=== PATIENT | female | born 2000 | race Caucasian/White ===

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

== ENCOUNTER 2022-08-09 18:53 | Observation (INO) ==
[2022-08-09] MEDS ORDERED: ACETAMINOPHEN 500 MG TAB PO STA ×2 (19:13→21:03)
[2022-08-09] MEDS ORDERED: SODIUM CHLORIDE 0.9% 1000ML 1,000 ML IV ONE ×2 (20:25→20:40)
--- NOTE | 2022-08-09 20:50 | Ultrasound Report ---
US pelvic complete HISTORY: 22 years-old Female heavy bleeding acute vaginal bleeding COMPARISON: None TECHNIQUE: Multiple real-time sonogram images of the deep pelvic structures were obtained transabdomi kimberly assessing grayscale appearance, color and spectral flow FINDINGS: Patient was unable to tolerate the transvaginal component of the study. Anteflexed uterus measures 7.4 x 3.8 x 5.5 cm and is unremarkable. Endometrium measures 2 mm in thick ness. Right ovary is obscured by bowel gas. The left ovary measures 3.2 x 2.0 x 2.2 cm with arterial inflow and venous outflow. No significant free pelvic fluid. IMPRESSION: Unremarkable pelvic ultrasound. ACT 112: Negative or not required by law. The above report was generated using voice recognition software. It may contain grammatical, syntax o r spelling errors. Electronically signed by: James Blood M.D. 08/09/2022 8:49 PM
[2022-08-09 21:02] LABS: Basophils # (auto) 0.04 K/uL (0-0.2); Basophils % (auto) 0.2 %; Eosinophils # (auto) 0.01 K/uL (0-0.50); Eosinophils % (auto) 0.1 %; Hematocrit (blood only) 34.6 % (37.0-47.0); Hemoglobin 11.6 g/dl (12.0-16.0); Immature Granulocytes # (auto) 0.07 K/uL (0.01-0.20); Immature Granulocytes % (auto) 0.4 %; Lymphocytes # (auto) 1.74 K/uL (1.2-3.4); Lymphocytes % (auto) 10.7 %; Mean Corpuscular Hemoglobin 26.7 pg (25.0-34.0); Mean Corpuscular Hgb Conc 33.5 g/dL (32.0-36.0); Mean Corpuscular Volume 79.5 fL (80.0-100.0); Mean Platelet Volume 11.2 fL (9.4-12.4); Monocytes # (auto) 1.11 K/uL (0.11-0.59); Monocytes % (auto) 6.8 %; Neutrophils # (auto) 13.26 K/uL (1.40-6.50); Neutrophils % (auto) 81.8 %; Platelet Count 342 K/uL (130-400); RDW Coefficient of Variation 14.1 % (11.5-14.5); RDW Standard Deviation 41.1 fL (36.4-46.3); Red Blood Count 4.35 M/uL (4.20-5.40); White Blood Count 16.23 K/ul (4.8-10.8)
--- NOTE | 2022-08-09 21:03 | Emergency Department Note ---
Impression & Plan Abscess, perirectal ADMIT ED Provider Note HPI: The patient is a 22-year-old female who presents the emergency department the chief complaint of right-sided rectal pain that has been constant and worsening for the past 2 days. Patient states the pain was severe today to the point where she was having pain with ambulation. Patient was evaluated in the outpatient setting, referred to the ED for further evaluation. On arrival here to the ED the patient is mildly tachycardic and febrile at 38.4, she denies any vomiting, denies any diarrhea. Patient states she has been having regular bowel movements. Patient states that she has severe pain in the area of the right side of her rectum and gluteus muscle area with ambulation and movement. ROS: - Per HPI *Outpatient medications and allergy history reviewed. *Pertinent external medical records reviewed. PE: General: Alert HEENT: Normocephalic, trachea midline Eyes: Extraocular eye movement is intact, no scleral erythema Pulmonary: Clear to auscultation bilaterally, no wheezing Cardio: Regular rate and rhythm GI: Abdomen is soft, nontender, there is no evidence of any abnormality on rectal examination (performed with female RN at the bedside), patient does have a significant amount of tenderness with any palpation of the right glute : No suprapubic tenderness MSK: No evidence of trauma or malformation of the extremities, no edema Skin: No evidence of rash Neuro: Alert, no focal deficits Psychiatric: Cooperative hall monitor: - An order was placed for continuous cardiac monitoring - Patient was noted to be in sinus rhythm with a rate of 90 CT ABDOMEN & PELVIS With Contrast: 3.6 x 3.1 cm right-sided perirectal abscess. Trace physiologic fluid within the dependent pelvis. No free air or intestinal obstruction. Normal-appearing appendix within the right lower quadrant. Radiologist: Vinicio Andrews MD Interventions provided in ED: -IV fluid bolus, IV Zosyn, Tylenol Medical Decision Making: Patient presented to the emergency department with some right-sided rectal pain, states she has had vaginal bleeding but this is consistent with her normal cycle. Ultrasound imaging was ordered from triage that shows no evidence of any abnormality on pelvic ultrasound. On my assessment patient does have significant tenderness in the area of the right [place], rectal examination does not show any evidence of any obvious fluctuant mass or abnormality. She states the pain feels as if it is in the right side of her rectum and she does have pain with palpation of the right glued therefore CT imaging was obtained and does show evidence of a perirectal abscess measuring approximately 3.6 cm in maximum diameter to the right side of the rectum. Patient's lab work shows a leukocytosis, she did present with fever, blood cultures were ordered, patient was started on IV Zosyn. I did discuss the case with the on-call surgical PA, Goyo Escamilla, patient was evaluated and determined appropriate for admission for further management to the surgical service under the service of Dr. Dodd of general surgery. I discussed all the above findings with the patient and her mother, they are in agreement for admission to the surgery service for definitive care. Patient is otherwise stable on my reassessment, states she is feeling somewhat improved following IV fluids and Tylenol. Patient was admitted to general surgery in stable condition for further management Consultants: General surgery service, Goyo Artis PA-C Disposition discussion held by myself with: Patient and mother at bedside Diagnosis: 1. Perirectal abscess, right side 2. Fever 3. Leukocytosis 4. Rectal pain, Disposition: Admission Gerry Simpson DO Emergency Medicine Past Med/Surg History Medical History Anemia Extradural bleed following injury, brief (less than 1 hour) LOC Hair loss Right knee pain Skull fracture, with loss of consciousness Surgical History H/O oral surgery Family History Grandfather (Paternal) Lung cancer Aunt Lung cancer Grandfather (Maternal) Stroke Family/Other Stomach cancer cousin Denies family history of Ovarian cancer Prostate cancer Diabetes Dementia Heart disease Myocardial infarction Breast cancer Colorectal cancer Social History Smoking Status: Never smoker Second Hand Exposure: No; Hx Alcohol Use: No Hx Substance Use: No Preferred Language: Malaysian Communication Ability: Effective Visual Impairment: No Limitations Hearing Ability: Normal Nursing Unit Clerk Required: No Beliefs That Will Affect Care: None marital status: Single Current Living Situation: Family current occupational status: employed Feels Safe at Home: Yes Childhood Exposure to Second-Hand Smoke: Yes (grandfather for a short while) caffeine: Yes Dental Care, Regularly: Yes Physical Activity Frequency: 3-4 Times per Week Seatbelt Use: always Sunscreen Use: Yes Allergies Allergies Allergy/AdvReac Type Severity Reaction Status Date / Time No Known Allergies Allergy Verified 08/09/22 20:48 Home Meds Home Medications Medication Instructions Recorded Confirmed albuterol sulfate 90 mcg/actuation 1 inh inhalation Q6H PRN Shortness 08/09/22 08/09/22 aerosol inhaler Of Breath Or Wheezing Previous Rx's Medication Instructions Recorded clindamycin phosphate 1 % lotion 1 applic topical DAILY #60 mL 09/03/21 selenium sulfide 2.25 % shampoo 1 applic topical .COMPLEX #180 mL 09/03/21 Results & Data (ED) Vital Signs Vital Signs - 24 hr 08/09/22 19:04 08/09/22 19:52 08/09/22 21:03 Temperature 38.9 C H 38.4 C H 37.5 C Temperature Source Temporal Artery Scan Oral Oral Pulse Rate 127 H Pulse Rate [Right Finger] 113 H Pulse Rhythm [Right Finger] Respiratory Rate 20 18 18 Respiratory Effort / Characteristics Non-Labored Spontaneous Non-Labored Spontaneous Non-Labored Spontaneous Respiratory Depth Normal Normal Normal Respiratory Pattern Regular Blood Pressure 106/73 Blood Pressure [Right Arm] 102/72 95/56 L Blood Pressure Mean 84 Blood Pressure Mean [Right Arm] 82 69 Blood Pressure Position [Right Arm] Pulse Oximetry 94 97 96 Oxygen Delivery Method Room Air Room Air Room Air Sepsis Recent Fever Within 48 Hours No Sepsis New/Unexplained Change in Mental Status N/A Sepsis Action Taken by Nursing No Action Required 08/09/22 22:31 Temperature 36.8 C Temperature Source Oral Pulse Rate Pulse Rate [Right Finger] 97 H Pulse Rhythm [Right Finger] Regular Respiratory Rate 18 Respiratory Effort / Characteristics Non-Labored Spontaneous Respiratory Depth Normal Respiratory Pattern Regular Blood Pressure Blood Pressure [Right Arm] 92/57 L Blood Pressure Mean Blood Pressure Mean [Right Arm] 68 Blood Pressure Position [Right Arm] Lying Pulse Oximetry 97 Oxygen Delivery Method Room Air Sepsis Recent Fever Within 48 Hours Sepsis New/Unexplained Change in Mental Status Sepsis Action Taken by Nursing Laboratory Data 08/09/22 19:30 08/09/22 19:30 Lab Results 08/09/22 08/09/2223 Range/Units 19:30 19:30 19:30 WBC 16.23 H (4.8-10.8) K/ul RBC 4.35 (4.20-5.40) M/uL Hgb 11.6 L (12.0-16.0) g/dl Hct 34.6 L (37.0-47.0) % MCV 79.5 L (80.0-100.0) fL MCH 26.7 (25.0-34.0) pg MCHC 33.5 (32.0-36.0) g/dL RDW Std Deviation 41.1 (36.4-46.3) fL RDW Coeff of Jason 14.1 (11.5-14.5) % Plt Count 342 (130-400) K/uL MPV 11.2 (9.4-12.4) fL Immature Gran % (Auto) 0.4 % Neut % (Auto) 81.8 % Lymph % (Auto) 10.7 % [place] % (Auto) 6.8 % Eos % (Auto) 0.1 % Baso % (Auto) 0.2 % Neut # (Auto) 13.26 H (1.40-6.50) K/uL Lymph # (Auto) 1.74 (1.2-3.4) K/uL [place] # (Auto) 1.11 H (0.11-0.59) K/uL Eos # (Auto) 0.01 (0-0.50) K/uL Baso # (Auto) 0.04 (0-0.2) K/uL Immature Gran # (Auto) 0.07 (0.01-0.20) K/uL Sodium 135 L (136-145) mmol/L Potassium 3.2 L (3.5-5.1) mmol/L Chloride 102 (98-107) mmol/L Carbon Dioxide 22 (21-32) mmol/L Anion Gap 11 (3-11) BUN 10 (6-23) mg/dl Creatinine 0.67 (0.6-1.2) mg/dl Est Cr Clr Drug Dosing 95.9 ml/min Est GFR ( Amer) 142.6 ml/min Est GFR (Non-Af Amer) 123.0 ml/min BUN/Creatinine Ratio 14.9 (10-20) Glucose 124 H (70-99(Fasting)) mg/dl Calcium 9.7 (8.5-10.1) mg/dl Total Bilirubin 0.5 (0.2-1.0) mg/dl AST 14 (13-39) U/L ALT 9 (7-52) U/L Alkaline Phosphatase 65 (34-104) U/L Total Protein 8.4 H (6.0-8.3) gm/dl Albumin 4.6 (3.4-5.0) gm/dl Globulin 3.8 (2.5-4.0) gm/dl Albumin/Globulin Ratio 1.2 (0.9-2) HCG, Qual Negative (Negative) Urine Color Urine Appearance (Clear) Urine pH (4.5-7.5) Ur Specific [place] (1.000-1.030) Urine Protein (Negative) Urine Glucose (UA) (Negative) Urine Ketones (Negative) Urine Blood (Negative) Urine Nitrite (Negative) Urine Bilirubin (Negative) Urine Urobilinogen (Negative) Ur Leukocyte Esterase (Negative) Urine WBC (Auto) (0-5) /hpf Urine RBC (Auto) (0-4) /hpf U Hyaline Cast (Auto) (0-5) /lpf U Epithel Cells (Auto) (0-5) /lpf Urine Bacteria (Auto) (Negative) POC Ur Test (NEG) Adenovirus (PCR) (NotDetected) B. pertussis DNA (PCR) (NotDetected) B.parapertussis DNA PCR (NotDetected) C. pneumoniae DNA (PCR) (NotDetected) Coronavirus OC43 (PCR) (NotDetected) Coronavirus HKU1 (PCR) (NotDetected) Coronavirus 229E (PCR) (NotDetected) SARS-CoV-2 (PCR) (NotDetected) Coronavirus NL63 (PCR) (NotDetected) Human Metapneumovir PCR (NotDetected) Influenza Type A (PCR) (NotDetected) Influenza Type B (PCR) (NotDetected) M. pneumoniae (PCR) (NotDetected) Parainfluenza 1 (PCR) (NotDetected) Parainfluenza 2 (PCR) (NotDetected) Parainfluenza 3 (PCR) (NotDetected) Parainfluenza 4 (PCR) (NotDetected) RSV (PCR) (NotDetected) Entero/Rhino (PCR) (NotDetected) 08/09/22 08/09/22 08/09/22 Range/Units 21:02 21:41 21:41 WBC (4.8-10.8) K/ul RBC (4.20-5.40) M/uL Hgb (12.0-16.0) g/dl Hct (37.0-47.0) % MCV (80.0-100.0) fL MCH (25.0-34.0) pg MCHC (32.0-36.0) g/dL RDW Std Deviation (36.4-46.3) fL RDW Coeff of Jason (11.5-14.5) % Plt Count (130-400) K/uL MPV (9.4-12.4) fL Immature Gran % (Auto) % Neut % (Auto) % Lymph % (Auto) % [place] % (Auto) % Eos % (Auto) % Baso % (Auto) % Neut # (Auto) (1.40-6.50) K/uL Lymph # (Auto) (1.2-3.4) K/uL [place] # (Auto) (0.11-0.59) K/uL Eos # (Auto) (0-0.50) K/uL Baso # (Auto) (0-0.2) K/uL Immature Gran # (Auto) (0.01-0.20) K/uL Sodium (136-145) mmol/L Potassium (3.5-5.1) mmol/L Chloride (98-107) mmol/L Carbon Dioxide (21-32) mmol/L Anion Gap (3-11) BUN (6-23) mg/dl Creatinine (0.6-1.2) mg/dl Est Cr Clr Drug Dosing ml/min Est GFR ( Amer) ml/min Est GFR (Non-Af Amer) ml/min BUN/Creatinine Ratio (10-20) Glucose (70-99(Fasting)) mg/dl Calcium (8.5-10.1) mg/dl Total Bilirubin (0.2-1.0) mg/dl AST (13-39) U/L ALT (7-52) U/L Alkaline Phosphatase (34-104) U/L Total Protein (6.0-8.3) gm/dl Albumin (3.4-5.0) gm/dl Globulin (2.5-4.0) gm/dl Albumin/Globulin Ratio (0.9-2) HCG, Qual (Negative) Urine Color Yellow Urine Appearance Clear (Clear) Urine pH 6.0 (4.5-7.5) Ur Specific [place] 1.005 (1.000-1.030) Urine Protein Negative (Negative) Urine Glucose (UA) Negative (Negative) Urine Ketones 1+ H (Negative) Urine Blood Trace H (Negative) Urine Nitrite Negative (Negative) Urine Bilirubin Negative (Negative) Urine Urobilinogen Negative (Negative) Ur Leukocyte Esterase Negative (Negative) Urine WBC (Auto) 0 (0-5) /hpf Urine RBC (Auto) 0-4 (0-4) /hpf U Hyaline Cast (Auto) 0 (0-5) /lpf U Epithel Cells (Auto) 5-10 H (0-5) /lpf Urine Bacteria (Auto) Negative (Negative) POC Ur Test NEG (NEG) Adenovirus (PCR) Not Detected (NotDetected) B. pertussis DNA (PCR) Not Detected (NotDetected) B.parapertussis DNA PCR Not Detected (NotDetected) C. pneumoniae DNA (PCR) Not Detected (NotDetected) Coronavirus OC43 (PCR) Not Detected (NotDetected) Coronavirus HKU1 (PCR) Not Detected (NotDetected) Coronavirus 229E (PCR) Not Detected (NotDetected) SARS-CoV-2 (PCR) Not Detected (NotDetected) Coronavirus NL63 (PCR) Not Detected (NotDetected) Human Metapneumovir PCR Not Detected (NotDetected) Influenza Type A (PCR) Not Detected (NotDetected) Influenza Type B (PCR) Not Detected (NotDetected) M. pneumoniae (PCR) Not Detected (NotDetected) Parainfluenza 1 (PCR) Not Detected (NotDetected) Parainfluenza 2 (PCR) Not Detected (NotDetected) Parainfluenza 3 (PCR) Not Detected (NotDetected) Parainfluenza 4 (PCR) Not Detected (NotDetected) RSV (PCR) Not Detected (NotDetected) Entero/Rhino (PCR) Not Detected (NotDetected) Administered Medications Discontinued Medications Acetaminophen (Acetaminophen 500 Mg Tab) 1,000 mg PO NOW STA Stop: 08/09/22 19:14 Last Admin: 08/09/22 19:29 Dose: 1,000 mg Documented By: [facility] Acetaminophen (Acetaminophen 500 Mg Tab) 1,000 mg PO NOW STA Stop: 08/09/22 21:04 Last Admin: 08/09/22 22:29 Dose: 1,000 mg Documented By: [facility] Sodium Chloride (Nss 1000ml) 1,000 mls @ 999 mls/hr IV .Q1H1M ONE Stop: 08/09/22 21:25 Last Infusion: 08/09/22 21:47 Dose: 0 mls/hr Documented By: Admin: 08/09/22 20:45 Dose: 999 mls/hr Documented By: [facility] Sodium Chloride (Nss 1000ml) 1,000 mls @ 999 mls/hr IV .Q1H1M ONE Stop: 08/09/22 21:40 Last Admin: 08/09/22 21:24 Dose: Not Given Documented By: [facility] Piperacillin Sod/Tazobactam Sod (Zosyn) 4.5 gm in 120 mls @ 240 mls/hr IV NOW ONE Stop: 08/09/22 22:58 Last Admin: 08/09/22 22:43 Dose: 240 mls/hr Documented By: [facility] Ioversol (Optiray 350 100ml) 87 ml IV ONCE ONE Stop: 08/09/22 22:04 Last Admin: 08/09/22 22:06 Dose: 87 ml Documented By: FIDELINA Imaging Data Radiologist's Impression: Pelvis Ultrasound 08/09/22 19:12 US pelvic complete HISTORY: 22 years-old Female heavy bleeding acute vaginal bleeding COMPARISON: None TECHNIQUE: Multiple real-time sonogram images of the deep pelvic structures were obtained transabdominally assessing grayscale appearance, color and spectral flow FINDINGS: Patient was unable to tolerate the transvaginal component of the study. Anteflexed uterus measures 7.4 x 3.8 x 5.5 cm and is unremarkable. Endometrium measures 2 mm in thickness. Right ovary is obscured by bowel gas. The left ovary measures 3.2 x 2.0 x 2.2 cm with arterial inflow and venous outflow. No significant free pelvic fluid. IMPRESSION: Unremarkable pelvic ultrasound. ACT 112: Negative or not required by law. The above report was generated using voice recognition software. It may contain grammatical, syntax or spelling errors. Electronically signed by: James Blood M.D. 08/09/2022 8:49 PM Discharge Plan Visit Data Chief Complaint: Vaginal Bleeding Stated Complaint: CONCERNING PERIOD SYMPTOMS, POSSIBLE INFECTION ED Provider: Gerry Simpson Discharge Problem: Abscess, perirectal Patient Disposition: Admitted As Inpatient Forms Stand Alone Forms: [facility] Prescriptions Prescriptions: No Action selenium sulfide 2.25 % shampoo 1 applic topical .COMPLEX Qty: 180 1RF Rx Instructions: 1 applic topical Wash scalp 2-3 times weekly. Let sit 3-5 minutes prior to rinsing off.; clindamycin phosphate 1 % lotion 1 applic topical DAILY Qty: 60 2RF Rx Instructions: Apply to face once daily in the morning as directed. albuterol sulfate 90 mcg/actuation HFA aerosol inhaler 1 inh inhalation Q6H PRN (Reason: Shortness Of Breath Or Wheezing) Rx Instructions: 1 inhalation every 6 hours needed Referrals Referrals: PCP,NO [Primary Care Provider] -
[2022-08-09 21:16] LABS: Albumin Globulin Ratio 1.2 (0.9-2); Albumin Level 4.6 gm/dl (3.4-5.0); BUN Creatinine Ratio 14.9 (10-20); Bilirubin,Total 0.5 mg/dl (0.2-1.0); Calcium 9.7 mg/dl (8.5-10.1); Creatinine Clr Calc Pharmacy 95.9 ml/min; Est GFR (African American) 142.6 ml/min; Globulin 3.8 gm/dl (2.5-4.0); Potassium 3.2 mmol/L (3.5-5.1); Total Protein 8.4 gm/dl (6.0-8.3)
[2022-08-09 21:48] LABS: Pregnancy Test, Serum Negative (Negative)
[2022-08-09] MEDS ORDERED: OPTIRAY 350 100ml IV ONE (22:03)
[2022-08-09 22:04] LABS: Adenovirus PCR Not Detected (NotDetected); Bordetella parapertussis PCR Not Detected (NotDetected); Bordetella pertussis PCR Not Detected (NotDetected); Chlamydia pneumoniae PCR Not Detected (NotDetected); Coronavirus 229E PCR Not Detected (NotDetected); Coronavirus CoV-2 (COVID19)PCR Not Detected (NotDetected); Coronavirus HKU1 PCR Not Detected (NotDetected); Coronavirus NL63 PCR Not Detected (NotDetected); Coronavirus OC43PCR Not Detected (NotDetected); Human Metapneumovirus PCR Not Detected (NotDetected); Influenza A PCR Not Detected (NotDetected); Influenza B PCR Not Detected (NotDetected); Mycoplasma pneumoniae PCR Not Detected (NotDetected); Parainfluenza Virus 1 PCR Not Detected (NotDetected); Parainfluenza Virus 2 PCR Not Detected (NotDetected); Parainfluenza Virus 3 PCR Not Detected (NotDetected); Parainfluenza Virus 4 PCR Not Detected (NotDetected); Respiratory Syncytial VirusPCR Not Detected (NotDetected); Rhinovirus/Enterovirus PCR Not Detected (NotDetected)
[2022-08-09 22:09] LABS: Appearance Urine Clear (Clear); Bacteria Urine Automated Negative (Negative); Bilirubin Urine Negative (Negative); Blood Urine Trace (Negative); Cast Urine Automated 0 /lpf (0-5); Color Urine Yellow; Glucose Urine UA Negative (Negative); Ketones Urine 1+ (Negative); Leukocyte Esterase Urine Negative (Negative); Nitrite Urine Negative (Negative); Protein Urine Negative (Negative); RBC Urine Automated 0-4 /hpf (0-4); Specific Gravity Urine 1.005 (1.000-1.030); Urobilinogen Urine Negative (Negative); WBC Urine Automated 0 /hpf (0-5)
[2022-08-09] MEDS ORDERED: PIPERACILLIN/TAZOBACTAM 4.5 GM/120 ML BAG IV ONE (22:29)
[2022-08-09] MEDS ORDERED: ACETAMINOPHEN 1,000 MG/100 ML VIAL IV PRN (23:15)
[2022-08-09] MEDS ORDERED: ONDANSETRON INJ 2 MG/ML 2 ML VIAL IV PRN (23:15)
--- NOTE | 2022-08-09 23:15 | History & Physical Report ---
Date of Service August 09, 2022 Assessment & Plan (1) Perirectal abscess: Plan: Due to the patient's labs, imaging, and clinical presentation should be admitted the hospital and we will proceed as follows: We will implement n.p.o. status at midnight tonight We will hydrate her with IV fluids supplementing her potassium We will provide analgesics We will provide antiemetics We will follow serial labs We will continue antibiotics. The patient has received Zosyn thus far in the emergency department. The patient has had blood cultures drawn in the emergency department and results will be followed with antibiotics adjusted accordingly We have tentatively placed patients on the surgical schedule tomorrow with Dr. Dodd for exam under anesthesia and drainage of perirectal abscess. I have discussed the procedure with the patient outlining the risks, benefits, alternatives and expected postoperative course. She is in agreement and wished to proceed Additional recommendations be forthcoming based on operative findings and her clinical course and postoperative recovery We will use SCDs for DVT prevention, no chemical means due to planned surgery She will be a level 1 full code History of Present Illness Chief Complaint: Rectal/buttock pain Primary Care Provider: NO PCP This is a 22-year-old female who presented to the emergency department secondary to rectal pain. Patient notes that she has been having a throbbing pain of her right buttocks for approximately 3 to 4 days. She notes that over this timeframe the pain has gotten increasingly worse. She notes that it is now worse when she walks and sits. She notes it is slightly better when she lies still but does not identify any other palliative factors. She notes that the pain does not radiate. She said earlier today she did have some nausea and vomiting but denies any abdominal pain. She also notes that she has had a fever as high as 101. She did see her primary care team today who saw her in the office and ultimately recommended patient seek further medical attention in the emergency department. Patient notes that she has never had this problem before but she has had hemorrhoids in the past and this is what she initially thought her pain was from. She denies any history of diabetes. Her most recent oral in take was approximately 20 minutes prior to my arrival in the room. Since arrival to the hospital the patient has had labs and imaging which I independently reviewed. A CT scan of the abdomen pelvis was performed that showed a 3.6 x 3.1 cm right-sided perirectal abscess. Labs include a CBC were white blood cell count was 16.2. Hemoglobin and hematocrit were 11.6 and 34.6. Platelet count was noted to be normal. Chemistry profile showed sodium was 135 with a potassium of 3.2. BUN and creatinine were both noted to be normal. Urinalysis was performed and was not indicative of infection. The patient had serologies checked for various viruses including RSV, influenza a and B, COVID- 19 all of which were negative. Since arrival to the emergency department the patient has received antibiotics in the form of Zosyn. She is also received 2 L of normal saline solution and analgesics in the form of Tylenol. At the time of my exam she was resting comfortably in bed and she was in no distress. Allergies Allergy/AdvReac Type Severity Reaction Status Date / Time No Known Allergies Allergy Verified 08/09/22 20:48 Home Medications Medication Instructions Recorded Confirmed Type clindamycin phosphate 1 % lotion 1 applic topical DAILY #60 mL 09/03/21 08/09/22 Rx selenium sulfide 2.25 % shampoo 1 applic topical .COMPLEX #180 mL 09/03/21 08/09/22 Rx albuterol sulfate 90 mcg/actuation 1 inh inhalation Q6H PRN Shortness 08/09/22 08/09/22 History aerosol inhaler Of Breath Or Wheezing Past Med/Surg History Medical History Anemia Extradural bleed following injury, brief (less than 1 hour) LOC Hair loss Right knee pain Skull fracture, with loss of consciousness Surgical History H/O oral surgery Family History Grandfather (Paternal) Lung cancer Aunt Lung cancer Grandfather (Maternal) Stroke Family/Other Stomach cancer cousin Denies family history of Ovarian cancer Prostate cancer Diabetes Dementia Heart disease Myocardial infarction Breast cancer Colorectal cancer Social History Smoking Status: Never smoker Second Hand Exposure: No; Hx Alcohol Use: No Hx Substance Use: No Preferred Language: Setswana Communication Ability: Effective Visual Impairment: No Limitations Hearing Ability: Normal Wire Mesh Knitter Required: No Beliefs That Will Affect Care: None marital status: Single Current Living Situation: Family current occupational status: employed Feels Safe at Home: Yes Childhood Exposure to Second-Hand Smoke: Yes (grandfather for a short while) caffeine: Yes Dental Care, Regularly: Yes Physical Activity Frequency: 3-4 Times per Week Seatbelt Use: always Sunscreen Use: Yes Review of Systems Constitutional: + fever; no chills Eyes: + corrective lenses Ear, Nose, Mouth, Throat: no ear pain Respiratory: no cough and no dyspnea Cardiovascular: no chest pain Gastrointestinal: as per Subjective / HPI; no abdominal pain Genitourinary: no dysuria Musculoskeletal: no back pain Integumentary: no rash Neurologic: no localized weakness Physical Exam Physical Exam: With a female nurse trolley collector present the patient's buttocks/rectum were examined. There were no open areas or cuts or excoriations. There were no areas of drainage. I did not appreciate any areas of erythema. There were no gross areas of fluctuance or induration. The patient's right buttocks just lateral to the anus was extremely tender to palpation however. Due to patient discomfort digital rectal exam was not performed. Constitutional: WD/WN, vitals as above + thin Eyes: no conjunctival abnormality Wears glasses ENMT: Ears: no hearing impairment Neck: trachea midline Respiratory: normal respiratory effort; no respiratory distress and no labored breathing Cardiovascular: Rate/Rhythm: regular rate and regular rhythm Gastrointestinal (Abdomen): Abdomen is soft and nonrigid. It is nondistended and nontender to palpation Musculoskeletal: No calf tenderness Skin: no rashes Neurologic: moves all extremities Psychiatric: A+Ox3, euthymic affect Results & Data Results & Data ([facility]) Vital Signs (Past 12 Hours) Vital Signs Temp Pulse Pulse Resp BP BP Pulse Ox 08/09/22 22:31 36.8 C 97 H 18 92/57 L 97 08/09/22 21:03 37.5 C 18 95/56 L 96 08/09/22 19:52 38.4 C H 113 H 18 102/72 97 08/09/22 19:04 38.9 C H 127 H 20 106/73 94 O2 Del Method 08/09/22 22:31 Room Air 08/09/22 21:03 Room Air 08/09/22 19:52 Room Air 08/09/22 19:04 Room Air Supervising Physician Co-Signing Physician Notes Dr Dodd- discussed case with Reilly Escamilla- reviewed pt information and studies admit, IV atbx, analgesics- plan for OR in am- incision/drainage Rt perirectal abscess PG Care Time/CCT Total # of Minutes Spent Total Time Spent with Patient: Total time spent is greater than 50% in coordination of care (as documented) at patient's floor/unit and/or counseling patient: Coding Level of Care Code 13133 INT INP/OBS CARE 3/75MIN Diagnoses Perirectal abscess K61.1
[2022-08-09] MEDS ORDERED: ACETAMINOPHEN 10MG/ML Custom 700 MG in EMPTY BAG 0 ML IV PRN (23:20)
[2022-08-10] MEDS ORDERED: ALBUTEROL HFA 8 GM INHALER INH PRN (00:34)
[2022-08-10] MEDS: POTASSIUM CHLORIDE 10 MEQ in LACTATED RINGER'S 1,000 ML IV SCH ×3 (01:01→21:20)
[2022-08-10] MEDS: PIPERACILLIN/TAZOBACTAM 3.375 GM in DEXTROSE 5% 100 ML IV SCH ×3 (03:54→21:20)
[2022-08-10 06:26] LABS: Basophils # (auto) 0.05 K/uL (0-0.2); Basophils % (auto) 0.3 %; Eosinophils # (auto) 0.07 K/uL (0-0.50); Eosinophils % (auto) 0.4 %; Hematocrit (blood only) 28.4 % (37.0-47.0); Hemoglobin 9.6 g/dl (12.0-16.0); Immature Granulocytes # (auto) 0.08 K/uL (0.01-0.20); Immature Granulocytes % (auto) 0.4 %; Lymphocytes # (auto) 1.57 K/uL (1.2-3.4); Lymphocytes % (auto) 8.7 %; Mean Corpuscular Hemoglobin 26.8 pg (25.0-34.0); Mean Corpuscular Hgb Conc 33.8 g/dL (32.0-36.0); Mean Corpuscular Volume 79.3 fL (80.0-100.0); Mean Platelet Volume 10.5 fL (9.4-12.4); Monocytes # (auto) 1.76 K/uL (0.11-0.59); Monocytes % (auto) 9.7 %; Neutrophils # (auto) 14.55 K/uL (1.40-6.50); Neutrophils % (auto) 80.5 %; Platelet Count 276 K/uL (130-400); RDW Coefficient of Variation 14.3 % (11.5-14.5); RDW Standard Deviation 41.5 fL (36.4-46.3); Red Blood Count 3.58 M/uL (4.20-5.40); White Blood Count 18.08 K/ul (4.8-10.8)
--- NOTE | 2022-08-10 06:32 | History & Physical Bridge Note ---
Date of Service August 10, 2022 History & Physical Bridge Note I have examined the patient, reviewed the History & Physical and in the interval since the performance of the History & Physical I have noted the following changes of clinical significance: no changes noted
[2022-08-10 06:37] LABS: Anion Gap 5 (3-11); Blood Urea Nitrogen 6 mg/dl (6-23); Calcium 8.6 mg/dl (8.5-10.1); Carbon Dioxide 23 mmol/L (21-32); Chloride 110 mmol/L (98-107); Creatinine Clr Calc Pharmacy 128.2 ml/min; Est GFR (African American) > 150.0 ml/min; Est GFR (Non-African American) 135.5 ml/min; Glucose 105 mg/dl (70-99(Fasting)); Potassium 3.6 mmol/L (3.5-5.1); Sodium 138 mmol/L (136-145)
--- NOTE | 2022-08-10 07:17 | Anesthesiology Consultation ---
Date of Service August 10, 2022 Assessment & Plan (1) Encounter for pre-operative examination: Chart Review Chart Review: entry level marketing representative initiated History Surgery Operation Date: 08/10/22 07:50 Proposed Procedures p Incision and Drainage Perirectal Abscess, Exam Under Anesthesia - Edgar Dodd MD, FACS Height/Weight Height: 5 ft 1 in Weight: 46.8 kg Allergies Allergy/AdvReac Type Severity Reaction Status Date / Time No Known Allergies Allergy Verified 08/09/22 20:48 Medications Home Medications Medication Instructions Recorded Confirmed Last Taken clindamycin phosphate 1 % lotion 1 applic topical DAILY #60 mL 09/03/21 08/09/22 Unknown selenium sulfide 2.25 % shampoo 1 applic topical .COMPLEX #180 mL 09/03/21 08/09/22 Unknown albuterol sulfate 90 mcg/actuation 1 inh inhalation Q6H PRN Shortness 08/09/22 08/09/22 Unknown aerosol inhaler Of Breath Or Wheezing Active Medications Generic Name Dose Route Start Last Admin Trade Name Freq PRN Reason Stop Dose Admin Potassium Chloride 10 meq/ 1,005 mls @ 125 mls/hr 08/10/22 01:00 08/10/22 01:01 Lactated Ringer's IV 09/09/22 00:59 125 mls/hr .Q8H3M USHA Administration Piperacillin Sod/Tazobactam 115 mls @ 28.75 mls/hr 08/10/22 04:00 08/10/22 03:54 Sod 3.375 gm/ Dextrose IV 08/20/22 03:59 28.8 mls/hr Q8H USHA Administration Protocol Ondansetron HCl 4 mg 08/09/22 23:15 08/10/22 07:09 Ondansetron Inj 2 Mg/Ml 2 Ml Vial IV 09/08/22 23:14 4 mg Q6H PRN Administration Nausea And Vomiting Past Medical History Medical History Anemia Extradural bleed following injury, brief (less than 1 hour) LOC Hair loss Right knee pain Skull fracture, with loss of consciousness Past Family History Family History Grandfather (Paternal) Lung cancer Aunt Lung cancer Grandfather (Maternal) Stroke Family/Other Stomach cancer cousin Denies family history of Ovarian cancer Prostate cancer Diabetes Dementia Heart disease Myocardial infarction Breast cancer Colorectal cancer Past Surgical History Surgical History H/O oral surgery Social History Smoking Status: Never smoker Do You Dip or Chew Tobacco: No Hx Alcohol Use: No Hx Substance Use: No Physical Exam Vital Signs Last Vital Signs Temp 98.4 F 08/10/22 00:48 Pulse 85 08/10/22 00:48 Resp 18 08/10/22 00:48 BP 92/60 L 08/10/22 00:48 Pulse Ox 100 08/10/22 00:48 O2 Del Method 08/10/22 00:48 Testing Laboratory Results 08/10/22 06:00 08/10/22 06:00 Urine Color Yellow 08/09/22 21:41 Urine Appearance Clear (Clear) 08/09/22 21:41 Urine pH 6.0 (4.5-7.5) 08/09/22 21:41 Ur Specific [place] 1.005 (1.000-1.030) 08/09/22 21:41 Urine Protein Negative (Negative) 08/09/22 21:41 Urine Glucose (UA) Negative (Negative) 08/09/22 21:41 Urine Ketones 1+ (Negative) H 08/09/22 21:41 Urine Nitrite Negative (Negative) 08/09/22 21:41 Ur Leukocyte Esterase Negative (Negative) 08/09/22 21:41 Urine WBC (Auto) 0 /hpf (0-5) 08/09/22 21:41 Urine RBC (Auto) 0-4 /hpf (0-4) 08/09/22 21:41 U Hyaline Cast (Auto) 0 /lpf (0-5) 08/09/22 21:41 U Epithel Cells (Auto) 5-10 /lpf (0-5) H 08/09/22 21:41 Urine Bacteria (Auto) Negative (Negative) 08/09/22 21:41 08/09/22 21:41 POC Ur Test NEG
--- NOTE | 2022-08-10 07:41 | CT Scan Report ---
CT OF THE ABDOMEN AND PELVIS WITH CONTRAST CLINICAL HISTORY: rectal pain x 2 days, eval for abscess COMPARISON STUDY: Pelvic ultrasound August 09, 2022. Right upper quadrant ultrasound March 02 7. TECHNIQUE: Following IV administration of 87 mL of Optiray, axial images of the abdomen and pelvis we re obtained from the lung bases to the proximal femurs. Images were reviewed in the axial, sagittal, and coronal planes. IV contrast was administered without complication. Automated exposure control wa s utilized for the study. A dose lowering technique was utilized adhering to the principles of ALARA . CT DOSE: 266.41 mGy.cm FINDINGS: Lung bases are unremarkable. No pneumatosis, free air or portal venous gas is present. The liver, spleen, adrenal glands, kidneys and pancreas are normal. There is no biliary or pancreatic carroll trisha dilatation. A few small hyperdense foci within the gallbladder favor polyps. Small gallstones cou ld appear similar. No evidence for acute cholecystitis. There is no evidence for a bowel obstruction. The appendix is not well visualized but visualized portions are normal. There is no right lower quad rant inflammation. There is trace fluid within the pelvis. Note is made of focal mild thickening with minimal calcification along anterior superior aspect of the bladder wall. The ovaries are not enlarg ed. Major vasculature is patent. Note is made of a 1.6 cm round hyperdense intraluminal focus within the hepatic flexure of the colon, on axial image 177 of 436. No additional bowel abnormalities are pr esent. There is a 3.8 x 2.8 cm rim-enhancing fluid collection with adjacent stranding within the righ t ischioanal fossa consistent with an abscess. This likely indicates with a smaller component which m easures 1.4 cm, adjacent to the rectum. IMPRESSION: 1. 3.8 x 2.8 cm right perirectal abscess. 2. 1.6 cm hyperdense intraluminal focus within the hepatic flexure of the colon. Although this could reflect stool, a mucosal lesion cannot be excluded. GI consultation for consideration for colonoscopy is recommended. This finding will be called/faxed to ordering provider at time of dictation. 3. Focal mild thickening with a few calcifications along anterior superior bladder wall. This is nons pecific but could reflect a small urachal remnant. Urology consultation is recommended. 4. Trace fluid within the pelvis, likely physiologic. 5. No bowel obstruction. ACT 112: Positive. There are findings on this exam that require communication between the performing entity and the patient following Patient Test Result Information Act ([place] Act 112) guidelines. Electronically signed by: Silvio Quintero M.D. 08/10/2022 7:40 AM
[2022-08-10] MEDS ORDERED: LACTATED RINGER'S 1,000 ML IV SCH ×3 (07:59→08:00)
[2022-08-10] MEDS ORDERED: ACETAMINOPHEN 1,000 MG/100 ML VIAL IV ONE (08:29)
[2022-08-10] MEDS ORDERED: ATROPINE SULFATE 0.1 MG/ML 10ML SYR IV PRN (09:55)
[2022-08-10] MEDS ORDERED: HYDROmorphone INJ 2 MG/ML SYR/VIAL IV PRN (09:55)
[2022-08-10] MEDS ORDERED: ePHEDrine sulfate 50 MG/ML AMP IV PRN (09:55)
[2022-08-10] MEDS ORDERED: fentaNYL citrate 100 MCG/2 ML VIAL IV PRN (09:55)
[2022-08-10] MEDS ORDERED: ONDANSETRON INJ 2 MG/ML 2 ML VIAL IV PRN (09:55)
--- NOTE | 2022-08-10 09:55 | Anesthesiology Consultation ---
Date of Service August 10, 2022 Assessment & Plan ASA ASA1 Proposed Anesthesia Anesthesia Type: General Risk / Benefits Reviewed With: PT / POA / Parent / Guardian, Accepts Plan and Informed Consent Obtained History Surgery Operation Date: 08/10/22 07:50 Proposed Procedures p Incision and Drainage Perirectal Abscess, Exam Under Anesthesia - Edgar Dodd MD, FACS Height/Weight Height: 5 ft 1 in Weight: 46.8 kg Allergies Allergy/AdvReac Type Severity Reaction Status Date / Time No Known Allergies Allergy Verified 08/09/22 20:48 Medications Home Medications Medication Instructions Recorded Confirmed Last Taken clindamycin phosphate 1 % lotion 1 applic topical DAILY #60 mL 09/03/21 08/09/22 Unknown selenium sulfide 2.25 % shampoo 1 applic topical .COMPLEX #180 mL 09/03/21 08/09/22 Unknown albuterol sulfate 90 mcg/actuation 1 inh inhalation Q6H PRN Shortness 08/09/22 08/09/22 Unknown aerosol inhaler Of Breath Or Wheezing Active Medications Generic Name Dose Route Start Last Admin Trade Name Freq PRN Reason Stop Dose Admin Potassium Chloride 10 meq/ 1,005 mls @ 100 mls/hr 08/10/22 01:00 08/10/22 09:25 Lactated Ringer's IV 09/09/22 00:59 Infused .Q10H3M USHA Infusion Piperacillin Sod/Tazobactam 115 mls @ 28.75 mls/hr 08/10/22 04:00 08/10/22 07:54 Sod 3.375 gm/ Dextrose IV 08/20/22 03:59 Infused Q8H USHA Infusion Protocol Ondansetron HCl 4 mg 08/09/22 23:15 08/10/22 07:09 Ondansetron Inj 2 Mg/Ml 2 Ml Vial IV 09/08/22 23:14 4 mg Q6H PRN Administration Nausea And Vomiting NPO Date Last Intake of Fluids: 08/09/22 Time Last Intake of Fluids: 23:30 Date Last Intake of Solids: 08/09/22 Time Last Intake of Solids: 23:30 Past Medical History Medical History Anemia Extradural bleed following injury, brief (less than 1 hour) LOC Hair loss Right knee pain Skull fracture, with loss of consciousness Exercise / Class Metabolic Activity II 4-5 Yardwork/Stairs/Walk up hill Past Family History Family History Grandfather (Paternal) Lung cancer Aunt Lung cancer Grandfather (Maternal) Stroke Family/Other Stomach cancer cousin Denies family history of Ovarian cancer Prostate cancer Diabetes Dementia Heart disease Myocardial infarction Breast cancer Colorectal cancer Past Surgical History Surgical History H/O oral surgery Past Anesthesia History No Hx of Anesthesia Complications and No Family Hx of Anesthesia Complications History of PONV No Hx of PONV and No Hx of Motion Sickness Social History Smoking Status: Never smoker Do You Dip or Chew Tobacco: No Hx Alcohol Use: No Hx Substance Use: No Review of Systems denies fever/cough/ colds/ chest pain/ SOB/ TANYA denies TANYA Physical Exam Vital Signs Last Vital Signs Temp 37.7 C H 08/10/22 09:35 Pulse 98 H 08/10/22 09:35 Resp 20 08/10/22 09:35 BP 96/69 L 08/10/22 09:35 Pulse Ox 100 08/10/22 09:35 O2 Del Method 08/10/22 09:35 ENMT Mouth: no TMJ abnormality and no dentition abnormality Thyromental Distance: > or= 3.5 Finger Breadths Mallampati Class: III Neck neck extension not limited Respiratory normal respiratory effort; no respiratory distress Auscultation: lungs clear to auscultation bilaterally Cardiovascular Rate/Rhythm: regular rate and regular rhythm Neurologic moves all extremities Psychiatric Orientation: alert and oriented x 3 Testing Laboratory Results 08/10/22 06:00 08/10/22 06:00 Urine Color Yellow 08/09/22 21:41 Urine Appearance Clear (Clear) 08/09/22 21:41 Urine pH 6.0 (4.5-7.5) 08/09/22 21:41 Ur Specific [place] 1.005 (1.000-1.030) 08/09/22 21:41 Urine Protein Negative (Negative) 08/09/22 21:41 Urine Glucose (UA) Negative (Negative) 08/09/22 21:41 Urine Ketones 1+ (Negative) H 08/09/22 21:41 Urine Nitrite Negative (Negative) 08/09/22 21:41 Ur Leukocyte Esterase Negative (Negative) 08/09/22 21:41 Urine WBC (Auto) 0 /hpf (0-5) 08/09/22 21:41 Urine RBC (Auto) 0-4 /hpf (0-4) 08/09/22 21:41 U Hyaline Cast (Auto) 0 /lpf (0-5) 08/09/22 21:41 U Epithel Cells (Auto) 5-10 /lpf (0-5) H 08/09/22 21:41 Urine Bacteria (Auto) Negative (Negative) 08/09/22 21:41 08/09/22 21:41 POC Ur Test NEG
[2022-08-10] MEDS ORDERED: fentaNYL citrate 100 MCG/2 ML VIAL ONE (09:58)
[2022-08-10] MEDS ORDERED: MIDAZOLAM HCL 1 MG/ML 2ML VIAL ONE (09:58)
[2022-08-10] MEDS ORDERED: DEXAMETHASONE SOD INJ 4 MG/ML VIAL ONE (10:22)
[2022-08-10] MEDS ORDERED: PROPOFOL IV EMULSION 10 MG/ML 20 ML VIAL IV ONE (10:22)
[2022-08-10] MEDS ORDERED: ONDANSETRON INJ 2 MG/ML 2 ML VIAL ONE (10:22)
[2022-08-10] MEDS ORDERED: LIDOCAINE 2% MPF LOCAL 5 ML VIAL INFIL ONE (10:22)
[2022-08-10] MEDS ORDERED: BUPIVACAINE 0.5 % 5 MG/1 ML MPF 30ML VIAL ONE (10:43)
--- NOTE | 2022-08-10 11:08 | Post Operative Brief Note ---
PG Immediate Post Op with CF Date of Surgery August 10, 2022 Pre & Post Diagnosis Operation Date: 08/10/22 07:50 Pre-Op Diagnosis: Christine-Rectal Abscess Post-Op Diagnosis: Christine-Rectal Abscess I identified the patient and participated in the time-out.: Yes Procedure Operation Date: 08/10/22 07:50 Actual Procedures p Incision and Drainage Perirectal Abscess(Not Applicable) - Edgar Dodd MD, FACS Surgeon Edgar Dodd MD, FACS Rope Laying Machine Operator Nurses Estimated Blood Loss 10 Findings Consistent with Post-Op Diagnosis Right-sided perirectal abscess which was relatively deep and large cavity of 3 to 4 cm Site cultured and a [place] drain placed Specimens Specimen Description: culture 1. Christine-Rectal Abscess Drains [place] Drain
[2022-08-10] MEDS ORDERED: KETOROLAC TROMETHAMINE 15 MG/ML VIAL IV ONE (11:30)
--- NOTE | 2022-08-10 11:41 | Anesthesiology Progress Note ---
Date of Service August 10, 2022 Anesthesia Post Procedure Vital Signs Vital Signs: Temp Pulse Pulse Pulse Resp BP BP 08/10/22 11:30 90 11 L 08/10/22 11:20 84 11 L 08/10/22 11:12 36.4 C L 88 14 08/10/22 09:35 37.7 C H 98 H 20 96/69 L 08/10/22 08:00 37.2 C 96 H 16 93/62 L 08/10/22 00:48 36.9 C 85 18 92/60 L 08/10/22 00:34 36.9 C 85 18 92/60 L 08/10/22 00:12 08/09/22 22:31 36.8 C 97 H 18 08/09/22 21:03 37.5 C 18 08/09/22 19:52 38.4 C H 113 H 18 08/09/22 19:04 38.9 C H 127 H 20 106/73 BP Pulse Ox O2 Del Method O2 Flow Rate 08/10/22 11:30 78/46 L 98 Oxymask 4 08/10/22 11:20 88/73 L 98 Oxymask 6 08/10/22 11:12 78/41 L 98 Oxymask 6 08/10/22 09:35 100 Room Air 08/10/22 08:00 96 Room Air 08/10/22 00:48 100 Room Air 08/10/22 00:34 100 Room Air 08/10/22 00:12 Room Air 08/09/22 22:31 92/57 L 97 Room Air 08/09/22 21:03 95/56 L 96 Room Air 08/09/22 19:52 102/72 97 Room Air 08/09/22 19:04 94 Room Air Pain Intensity Groin: Pain Intensity: 7 Rectal: Pain Intensity: 6 Transfer of Care Handoff Completed per policy Notes Mental Status: alert / awake / arousable and participated in evaluation Patient Amnestic to Procedure: Yes Nausea / Vomiting: adequately controlled Pain: adequately controlled Airway Patency, RR, SpO2: stable & adequate BP & HR: stable & adequate Hydration State: stable & adequate Anesthetic Complications: no major complications apparent and Pt Satisfied with anesthetic care
--- NOTE | 2022-08-10 11:54 | Operative Report (OR) ---
DATE OF OPERATION: 08/10/2022. NAME OF OPERATION: Incision and drainage of complex perirectal abscess. PREOPERATIVE DIAGNOSIS: Perirectal abscess. POSTOPERATIVE DIAGNOSIS: Perirectal abscess with 3-4 cm abscess cavity. STAFF SURGEON: Edgar Dodd MD. ANESTHESIA: General. DESCRIPTION OF PROCEDURE: The patient was brought in the operating room and placed on the operating table in supine position. Her legs were placed in lithotomy position. Her perineum prepped and drap ed. The right perianal area was palpated. It was very indurated. Using 0.5% plain Marcaine, skin an d subcutaneous tissue were anesthetized. Incision made carrying dissection down deep encountering a large cavity of approximately 3 to 4 cm with purulent fluid, which was cultured. It was aspirated, s uctioned, and irrigated and then a silicone drain placed into the site, secured using 4-0 nylon sutur e. Dressing applied. The patient was transferred to recovery room in stable condition. Job ID: [id number]
[2022-08-10] MEDS ORDERED: DOCUSATE SODIUM/SENNA 50/8.6MG TAB PO ONE (12:15)
[2022-08-10] MEDS: ACETAMINOPHEN 325 MG TAB PO PRN ×2 (14:43→19:21)
[2022-08-10] MEDS: IBUPROFEN 600 MG TAB PO PRN (16:53)
[2022-08-10] MEDS: MoRPHine SULFATE 2 MG/ML CARP IV PRN (21:13)
[2022-08-11] MEDS: MoRPHine SULFATE 2 MG/ML CARP IV PRN (01:35)
[2022-08-11] MEDS: PIPERACILLIN/TAZOBACTAM 3.375 GM in DEXTROSE 5% 100 ML IV SCH (04:09)
[2022-08-11] MEDS: POTASSIUM CHLORIDE 10 MEQ in LACTATED RINGER'S 1,000 ML IV SCH (04:57)
[2022-08-11] MEDS: IBUPROFEN 600 MG TAB PO PRN (05:43)
[2022-08-11] MEDS ORDERED: MAGNESIUM HYDROXIDE SUSP 30 ML UDC PO SCH (09:00)
[2022-08-11] MEDS ORDERED: DOCUSATE SODIUM/SENNA 50/8.6MG TAB PO SCH (09:00)
--- NOTE | 2022-08-12 11:13 | Discharge Summary (DS) ---
DATE OF ADMISSION: 08/09/2022. DATE OF DISCHARGE: 08/11/2022. PRINCIPAL DIAGNOSIS: Perirectal abscess. PROCEDURE: The patient underwent incision and drainage of perirectal abscess. HISTORY OF PRESENT ILLNESS: The patient is a 22-year-old female presenting to the emergency room wit h severe perirectal pain with workup consistent with perirectal abscess. She was taken to the operat ing room on 08/10/2022 where she underwent incision and drainage of perirectal abscess, which was rel atively large. She was kept in the hospital overnight and was felt stable for discharge on 3, and to be followed up in the surgical clinic within 1 week. She does have a drain in place and is on p.o. antibiotics. Job ID: [id number]
== END 2022-08-11 11:19 | disposition home or self-care (01) | DRG 346 ==
LOC: ED 18:53 → 3W 23:19 → INTOOBSV 23:19 → 3W 08-10 00:12